=== PATIENT | female | born 1965 | race Caucasian/White ===

== ENCOUNTER 2021-09-15 09:40 | Outpatient (CLI) | payer SELFPAY ==
[2021-09-15 08:57] VITALS: BMI 28.5
[2021-09-15 11:45] VITALS: BP 115/77; PULSE 71; RESP 20; TEMP 36.6; O2SAT 96
== END 2021-09-15 09:41 | disposition home or self-care (01) ==
PROVIDERS: PCP Nurse Practitioner Family; Visit Provider Nurse Practitioner Family
DX: U07.1 COVID-19 (principal); E11.9 Type 2 diabetes mellitus without complications
CPT/HCPCS: 96365